=== PATIENT | female | born 1985 | race Hispanic/Latino ===

== ENCOUNTER 2019-07-17 16:47 | Emergency (ER) | payer SELFPAY ==
[~2019-07-17] VITALS: Ht 170.2 cm; Wt 84.4 kg
[2019-07-17] MEDS ORDERED: KETOROLAC TROMETHAMINE 30 MG/ML VIAL ONE (17:13)
[2019-07-17] MEDS ORDERED: NAPROSYN500 MG PO (17:13)
[2019-07-17] MEDS ORDERED: ULTRAM50 MG PO (17:13)
[2019-07-17] MEDS ORDERED: KETOROLAC TROMETHAMINE 60 MG/2 ML VIAL IM ONE (17:15)
--- NOTE | 2019-07-17 17:52 | Diagnostic Imaging Report ---
EXAM: Cervical spine radiographs-6 views INDICATION: Shoulder pain. COMPARISON: None FINDINGS: BONES: Mild straightening of the cervical lordosis, which may be positional. C1-C2 alignment is maintained. No acute displaced fractures. Vertebral body heights are preserved. DISCS: Disc spaces are preserved. No significant bony neural foraminal stenosis. JOINTS: The facet joints are unremarkable. SOFT TISSUES: Unremarkable IMPRESSION: No acute cervical spine radiographic abnormality. Signed by: Dr. Mariaelena Gasca MD on 07/17/2019 5:49 PM
--- NOTE | 2019-07-17 17:54 | Diagnostic Imaging Report ---
Exam: Left shoulder radiographs-2 views History: Left shoulder pain. Comparison: None. Findings: No evidence of acute fracture, malalignment, or soft tissue abnormality. Impression: No acute radiographic abnormality. Signed by: Dr. Mariaelena Gasca MD on 07/17/2019 5:51 PM
== END 2019-07-17 18:10 | disposition home or self-care (01) ==
LOC: FSED 16:47
DX: M25.512 Pain in left shoulder (principal); X50.0XXA Overexertion from strenuous movement or load, initial encounter; I10 Essential (primary) hypertension
CPT/HCPCS: 72050; 73030; 93005; 99283; J1885 ×2

== ENCOUNTER 2020-02-06 23:36 | Emergency (ER) | payer OTHER ==
[~2020-02-06] VITALS: Ht 170.2 cm; Wt 84.4 kg
[~2020-02-06 23:36] MED LIST: NAPROSYN500 MG PO; ULTRAM50 MG PO
== END 2020-02-07 00:37 | disposition left against medical advice (07) ==
LOC: FSED 23:36
DX: R42 Dizziness and giddiness (principal); I10 Essential (primary) hypertension